=== PATIENT | male | born 1995 | race Caucasian/White ===

== ENCOUNTER 2020-03-18 23:04 | Emergency (ER) | payer SELFPAY ==
--- NOTE | ~2020-03-18 | CT_ITS ---
EXAMINATION: CT brain wo con EXAM DATE: 03/18/2020 23:57 INDICATION: Altered mental status, abrasions to right side of face. TECHNIQUE: Spiral CT of the head was performed without contrast. Axial, coronal and sagittal images were reviewed. The dose-length product (DLP) for this examination was 681.00 mGy-cm. The exposure w as tailored according to patient size, and iterative reconstruction (ASIR) was used as additional dos e reduction technique. Comparison is made to prior examination from 08/02/2013. FINDINGS: There is no acute intraparenchymal hemorrhage. No evidence of intraparenchymal brain mass lesion. No evidence of acute infarction. There is no mass effect or midline shift. The ventricles are normal in size. There are no extra-axial collections. There are no acute calvarial fractures. T he orbits are unremarkable. Soft tissue is unremarkable. The visualized sinuses and mastoid air nubia ls are well aerated. IMPRESSION: 1. Normal head CT examination. Reviewed, dictated and finalized at location A.
[2020-03-18 23:03] VITALS: BP 158/88; PULSE 131; RESP 22; TEMP 36.8; O2SAT 99
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
[2020-03-18 23:33] LABS: Basophils Absolute Auto 0.1 K/mm3 (0.0-0.1); Basophils Percent Auto 0.4 % (0.2-1.2); Eosinophils Percent Auto 0.2 % (0-4.4); Hematocrit 47.4 % (42.0-52.0); Hemoglobin 17.2 g/dL (14.0-18.0); Immature Granulocyte Absolute 0.08 K/mm3 (0.00-0.031); Immature Granulocyte Percent A 0.7 % (0-0.5); Lymphocytes Absolute Auto 2.41 K/mm3 (0.9-3.2); Lymphocytes Percent Auto 20.3 % (18.3-44.2); Mean Corpuscular HGB Conc 36.3 g/dl (32-36); Mean Corpuscular Hemoglobin 33.3 pg (26-34); Mean Corpuscular Volume 91.9 fl (80-100); Mean Platelet Volume 9.2 fl (7.4-10.4); Monocytes Absolute Auto 1.2 K/mm3 (0.1-0.6); Monocytes Percent Auto 9.9 % (2.6-8.5); Neutrophils Absolute Auto 8.1 K/mm3 (1.3-6.7); Neutrophils Percent Auto 68.5 % (45.5-73.1); Platelet Count Result 348 k/mm3 (150-375); Red Blood Count 5.16 M/mm3 (4.6-6.20); Red Cell Distribution Width 12.2 % (11.5-14.5); White Blood Count 11.9 K/mm3 (4.5-10.0)
[2020-03-18 23:43] LABS: Acetaminophen < 10 ug/mL (10-30); Ethanol < 10 mg/dL (<10); Salicylate < 1.0 mg/dL (2-20)
[2020-03-18 23:55] LABS: Add Urine Microscopic? YES; Appearance Urine Clear (Clear); Bilirubin Urine Negative (Negative); Blood Urine 1+ (Negative); Color Urine Yellow (Yellow); Glucose Urine UA Negative (Negative); Ketones Urine 1+ mg/dL (Negative); Leukocyte Esterase Ur Negative LEU/UL (Negative); Mucus Urine Rare /lpf; Nitrate Urine Negative (Negative); Protein Urine 2+ mg/dL (Negative); RBC Urine 0-2 /hpf (0-2)
[2020-03-18 23:56] VITALS: BP 105/60; PULSE 94; RESP 22; O2SAT 96
[2020-03-19 00:01] LABS: Albumin Level 5.2 g/dL (3.5-5.1); Alkaline Phosphatase 104 U/L (38-126); Bilirubin,Total 1.5 mg/dL (0.2-1.3); Blood Urea Nitrogen 10 mg/dL (9-20); Calcium 9.3 mg/dL (8.4-10.2); Carbon Dioxide 15 mmol/L (22-30); Chloride 100 mmol/L (98-107); Estimated Glomerular Filt Rate > 60; Glucose 153 mg/dL (75-110); Potassium 3.4 mmol/L (3.4-5.0); Sodium 137 mmol/L (137-145)
[2020-03-19 00:05] LABS: Barbiturate Screen Urine Negative (Negative); Benzodiazepines Screen Urine Negative (Negative)
[2020-03-19 00:07] LABS: Amphetamine Screen Urine Negative (Negative); Cannabinoid Screen Urine Negative (Negative); Cocaine Screen Urine Negative (Negative); Opiate Screen Urine Negative (Negative); Phencyclidine Screen Urine Negative (Negative)
[2020-03-19 00:07] LABS: Alanine Aminotransferase 33 U/L (4-50); Aspartate Amino Transferase 48 U/L (17-59)
[2020-03-19 00:38] LABS: Methadone Screen Urine Negative (Negative)
[2020-03-19 00:52] VITALS: BP 127/74; PULSE 97; RESP 20; O2SAT 98
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
[2020-03-19 01:49] VITALS: BP 141/83; PULSE 99; RESP 22; O2SAT 99
--- NOTE | 2020-03-19 02:17 | PC.NURSE ---
CALL RECEIVED FROM PT MOTHER. UPDATES GIVEN
[2020-03-19] MEDS: LORAZEPAM INJ 2 MG/ML VIAL IV PUSH (02:32)
[2020-03-19] MEDS: HALOPERIDOL LACTATE 5 MG/ML VIAL IM (02:33)
[2020-03-19 02:46] VITALS: BP 132/95; PULSE 101; RESP 22; O2SAT 99
[2020-03-19 03:23] VITALS: BP 102/66; PULSE 105; RESP 22; O2SAT 99
--- NOTE | 2020-03-19 03:23 | PC.NURSE ---
pt has been released from police custody. pt moved to room 5 for closer observation. sitter at bedside
--- NOTE | 2020-03-19 04:05 | PC.NURSE ---
call received from mother. updates given.
--- NOTE | 2020-03-19 07:57 | PC.NURSE ---
cleaned pt wounds and bandaged.
--- NOTE | 2020-03-19 08:04 | PC.NURSE ---
Pt awake. Pt states he is not SI/HI. Pt denies hallucinations. Pt is A&Ox4. Pt states he works in [employer] and is supposed to work today. Pt has abrasions to R forehead and L knee. Pt top torn. Pt is calm and cooperative at this time. Pt appears in NAD. Pt has sitter in place and room cleared of equipment
[2020-03-19 08:11] LABS: Blood Urea Nitrogen 13 mg/dL (9-20); Calcium 9.1 mg/dL (8.4-10.2); Carbon Dioxide 25 mmol/L (22-30); Chloride 100 mmol/L (98-107); Estimated Glomerular Filt Rate > 60; Glucose 84 mg/dL (75-110); Potassium 4.1 mmol/L (3.4-5.0); Sodium 136 mmol/L (137-145)
--- NOTE | 2020-03-19 08:12 | PC.NURSE ---
Pt breakfast tray given to pt
--- NOTE | 2020-03-19 08:32 | PC.NURSE ---
Pt went to bathroom. Pt did not want to go back into room. Pt went into room after security stood by door. Pt resting in bed now.
[2020-03-19 19:26] VITALS: BP 154/96; PULSE 97; TEMP 36.8; O2SAT 100
--- NOTE | 2020-03-19 23:35 | PC.NURSE ---
report taken from samanta sommers at this time.
--- NOTE | 2020-03-20 00:15 | PC.NURSE ---
paperwork faxed to [facility] in [place] per crisis workers request.
--- NOTE | 2020-03-20 01:30 | PC.NURSE ---
CRISIS IN ROOM TO REEVALUATE PATIENT. PT GIVEN SAFETY PLAN AT THIS TIME. EPD AWARE.
[2020-03-20 02:01] VITALS: BP 122/86; PULSE 80; RESP 19; TEMP 37.2; O2SAT 100
== END 2020-03-20 02:02 | disposition home or self-care (01) ==
PROVIDERS: Emergency Medicine; Emergency Provider General Practice; PCP Emergency Medicine
DX: F23 Brief psychotic disorder (principal)
CPT/HCPCS: 36415; 51701; 70450; 80048; 80053; 80307; 81001; 84443; 85025; 96372; 96374; 99284; 99285; J1630; J2060

== ENCOUNTER 2022-09-17 18:32 | Emergency (ER) | payer SELFPAY ==
[2022-09-17 18:41] VITALS: BP 161/92; RESP 18; TEMP 36.9; O2SAT 100
[2022-09-17 20:15] VITALS: PULSE 86
--- NOTE | 2022-09-17 20:27 | ED.UPPEXIN ---
HPI - Extremity Injury (Upper) General Chief Complaint: Extremity Injury, Upper Stated Complaint: right arm pain Time Seen by Provider: 09/17/22 20:00 History of Present Illness HPI narrative: Patient is a 26-year-old male presenting with right arm numbness. Patient states that he fell asleep on his right arm with his forearm pressed against a piece of metal about a week ago. States that since that time he has had paresthesias of his right forearm into his right hand. States that he cannot extend his wrist or his thumb. Denies flexor weakness. Denies any pain. Denies decreased range of motion of his elbow or shoulder. Denies further injuries or complaints. Related Data Allergies Allergy/AdvReac Type Severity Reaction Status Date / Time No Known Allergies Allergy Verified 10/25/18 14:14 Review of Systems Review of Systems: All systems reviewed & are unremarkable except as noted in HPI and below PMFSH Social History Social History Substance use: never Exam Narrative: GENERAL: Well-appearing, well-nourished, and in no acute distress. HEAD: Normocephalic, atraumatic. EYES: PERRLA and EOMI. ENT: Nares clear, no rhinorrhea or epistaxis. Mucous membranes moist. NECK: Supple. CHEST: No respiratory distress. HEART: Regular rate and rhythm. EXTREMITIES: No edema. No sensory deficits of either forearm, patient unable to extend right wrist, has difficulty extending his fingers, no difficulty with flexion; range of motion of elbow and shoulder fully intact SKIN: Warm, dry, no rash. NEURO: No focal deficits. Alert and oriented x3. PSYCH: Normal mood and affect. Course Vital Signs Vital signs: Vital Signs Temperature 98.5 F 09/17/22 18:41 Respiratory Rate 18 09/17/22 18:41 Blood Pressure 161/92 H 09/17/22 18:41 Pulse Oximetry 100 09/17/22 18:41 Oxygen Delivery Room Air 09/17/22 18:41 Temperature 98.5 F 09/17/22 18:41 Pulse Rate 86 09/17/22 20:15 Respiratory Rate 18 09/17/22 18:41 Blood Pressure 161/92 H 09/17/22 18:41 Pulse Oximetry 100 09/17/22 18:41 Oxygen Delivery Room Air 09/17/22 18:41 MDM - Extremity Injury (Upper) MDM Narrative Medical decision making narrative: Patient is a 26-year-old presenting with right arm numbness and wrist weakness after falling asleep on his right arm. Patient is hypertensive, advised to follow-up with primary care for this. Exam is remarkable for the above. 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 We will place the patient in a wrist splint. Patient does not have a PCP, will provide number for one. We will also provide number for neurology. Appropriate supportive care discussed. Return precautions given. Patient voiced understanding and is agreeable with plan. Discharged in stable condition. Critical Care Time Critical Care Time Critical Care Time: No Discharge Plan Discharge Clinical Impression: Radial neuropathy Patient Disposition: Home, Self-Care Condition: Stable Instructions: Antibiotic Form, Radial Nerve Palsy (ED) Additional Instructions: Please follow-up with primary care and neurology. If your symptoms worsen, you develop weakness, or other concerning symptoms arise, please return to the ER. Follow-up/Referrals: Melvin Singh MD [Physician] - Mary Arana MD [Physician] - UNKNOWN,DOCTOR [Primary Care Provider] -
--- NOTE | 2022-09-17 21:13 | PC.NURSE ---
Per RAJAT Jauregui, place DANNY wrap while wrist is flexed upwards.
== END 2022-09-17 21:18 | disposition home or self-care (01) ==
PROVIDERS: Emergency Provider Emergency Medicine
DX: M54.10 Radiculopathy, site unspecified (principal); R03.0 Elevated blood-pressure reading, without diagnosis of hypertension
CPT/HCPCS: 99282